=== PATIENT | male | born 1970 | race Caucasian/White ===

== ENCOUNTER 2017-06-12 11:45 | Observation (INO) ==
[2017-06-12] MEDS ORDERED: NITROGLYCERIN 2% OINT 1 INCH/GM PACK TOP STA ×2 (12:19→13:02)
[2017-06-12] MEDS ORDERED: ONDANSETRON 4 MG/2 ML VIAL IV STA (12:19)
[2017-06-12] MEDS ORDERED: MORPHINE 2 MG/1 ML SYRINGE IV STA (12:19)
[2017-06-12] MEDS ORDERED: ENOXAPARIN 100 MG/ML SYRINGE SUBCUT STA (12:19)
[2017-06-12] MEDS ORDERED: ASPIRIN 325 MG TABLET PO STA (12:19)
[2017-06-12] MEDS ORDERED: NITROGLYCERIN 2% OINT 1 INCH/GM PACK TOP ONE (12:51)
[2017-06-12] MEDS ORDERED: ONDANSETRON 4 MG/2 ML VIAL ONE (12:52)
[2017-06-12] MEDS ORDERED: ENOXAPARIN 80 MG/0.8 ML SYRINGE SUBCUT ONE (12:52)
[2017-06-12] MEDS ORDERED: ASPIRIN 325 MG TABLET ONE (12:53)
[2017-06-12] MEDS ORDERED: MORPHINE 10 MG/1 ML VIAL ONE (12:53)
[2017-06-12 12:58] LABS: Basophils # 0.1 10*3/uL (0.0-0.2); Basophils % 0.4 % (0.0-0.8); Eosinophils # 0.2 10*3/uL (0.0-0.87); Eosinophils % 1.5 % (0.00-10.9); Hematocrit 42.7 VOL% (42.0-52.0); Hemoglobin 15.2 GM/DL (14.0-18.0); Immature Granulocytes % 0.9 %; Immature Granulocytes Absolute 0.13 #; Lymphocytes # 2.3 10*3/uL (1.4-4.0); Mean Corpuscular HGB Conc 35.6 GM/DL (32-36); Mean Corpuscular Hemoglobin 33 PG (27-34); Mean Corpuscular Volume 93.8 FL (87-102); Mean Platelet Volume 9.4 FL (9.6-12.0); Monocytes % 6.9 % (1.7-12.7); Neutrophils # 10.1 10*3/uL (1.4-7.4); Neutrophils % 73.3 % (38.7-73.9); Platelet Count 293 T/CUMM (130-400); Red Blood Count 4.55 MC/CUMM (3.8-5.5); Red Cell Distribution Width 12.6 % (9.3-17.3); White Blood Count 13.7 T/CUMM (4-12)
[2017-06-12 13:06] LABS: PT Patient Result 10.3 SECS; Partial Thromboplastin Time 28.2 SECS (0-40)
[2017-06-12 13:23] LABS: Albumin 3.8 G/DL (3.4-5.0); Bilirubin,Total 0.9 MG/DL (0.2-1.0); Calcium 9.5 MG/DL (8.5-10.1); Osmolality,Calculated 278.5 MOS/KG (273-304); Total Protein 7.2 G/DL (6.4-8.3)
[2017-06-12] MEDS ORDERED: ONDANSETRON 4 MG/2 ML VIAL IV PRN (15:19)
[2017-06-12] MEDS ORDERED: DOCUSATE SODIUM 100 MG CAPSULE PO PRN (15:19)
[2017-06-12 15:46] LABS: Risk Ratio 2.32
[2017-06-12] MEDS ORDERED: MORPHINE 2 MG/1 ML SYRINGE IV PRN (15:51)
[2017-06-12] MEDS ORDERED: PNEUMOCOCCAL VACCINE (13 VALENT) 0.5 ML SYRINGE IM ONE (16:23)
[2017-06-12] MEDS: NICOTINE 21 MG/24 HR PATCH TRANSDERM SCH (17:32)
[2017-06-12] MEDS: MORPHINE 10 MG/1 ML VIAL IV PRN ×2 (17:32→21:52)
[2017-06-12] MEDS ORDERED: ENOXAPARIN 40 MG/0.4 ML SYRINGE SUBCUT SCH (18:00)
[2017-06-12] MEDS ORDERED: ZALEPLON 5 MG CAPSULE PO PRN (21:43)
[2017-06-13] MEDS: MORPHINE 10 MG/1 ML VIAL IV PRN ×2 (02:07→12:13)
[2017-06-13 05:55] LABS: Basophils # 0.1 10*3/uL (0.0-0.2); Basophils % 0.6 % (0.0-0.8); Eosinophils # 0.5 10*3/uL (0.0-0.87); Eosinophils % 4.5 % (0.00-10.9); Hematocrit 41.4 VOL% (42.0-52.0); Hemoglobin 13.8 GM/DL (14.0-18.0); Immature Granulocytes Absolute 0.11 #; Lymphocytes # 2.6 10*3/uL (1.4-4.0); Lymphocytes % 23.5 % (21.2-54.2); Mean Corpuscular HGB Conc 33.3 GM/DL (32-36); Mean Corpuscular Hemoglobin 32 PG (27-34); Mean Platelet Volume 9.6 FL (9.6-12.0); Monocytes # 0.9 10*3/uL (0.11-0.8); Monocytes % 8.2 % (1.7-12.7); Neutrophils % 62.2 % (38.7-73.9); Platelet Count 274 T/CUMM (130-400); Red Blood Count 4.27 MC/CUMM (3.8-5.5); Red Cell Distribution Width 12.7 % (9.3-17.3); White Blood Count 11.2 T/CUMM (4-12)
[2017-06-13 06:35] LABS: Calcium 9.2 MG/DL (8.5-10.1); Osmolality,Calculated 279.4 MOS/KG (273-304); Potassium 4.3 MMOL/L (3.5-5.1)
[2017-06-13] MEDS: NICOTINE 21 MG/24 HR PATCH TRANSDERM SCH (08:36)
[2017-06-13] MEDS ORDERED: PANTOPRAZOLE 40 MG TABLET PO SCH (09:00)
[2017-06-13 09:33] LABS: Troponin I Only < 0.015 NG/ML (0.00-0.045)
[2017-06-13 11:40] VITALS: BP 110/65
[2017-06-13] MEDS ORDERED: INFLUENZA VIRUS VACCINE (FLULAVAL) SYRINGE IM ONE (12:19)
[2017-06-13] MEDS ORDERED: INFLUENZA VIRUS VACCINE 0.5 ML SYRINGE IM ONE (12:30)
== END 2017-06-13 12:56 | disposition home or self-care (01) ==
LOC: N.ED 11:45 → N.EDINP 11:45 → SUATTDRO 14:09 → N.TELEN 15:55
PROVIDERS: ADMIT Internal Medicine; ATTEND Hospitalist

== ENCOUNTER 2018-11-26 12:23 | Inpatient (IN) ==
[2018-11-26 12:49] LABS: Basophils # 0.1 10*3/uL (0.0-0.2); Basophils % 0.7 % (0.0-0.8); Eosinophils # 0.1 10*3/uL (0.0-0.87); Eosinophils % 1.5 % (0.00-10.9); Hematocrit 41.7 VOL% (42.0-52.0); Hemoglobin 13.6 GM/DL (14.0-18.0); Immature Granulocytes % 0.5 %; Immature Granulocytes Absolute 0.05 #; Lymphocytes # 2.1 10*3/uL (1.4-4.0); Lymphocytes % 22.1 % (21.2-54.2); Mean Corpuscular HGB Conc 32.6 GM/DL (32-36); Mean Corpuscular Volume 96.8 FL (87-102); Neutrophils % 68.2 % (38.7-73.9); Platelet Count 294 T/CUMM (130-400); Red Blood Count 4.31 MC/CUMM (3.8-5.5); Red Cell Distribution Width 12.9 % (9.3-17.3); White Blood Count 9.6 T/CUMM (4-12)
[2018-11-26 13:12] LABS: Albumin 3.5 G/DL (3.4-5.0); Bilirubin,Total 0.9 MG/DL (0.2-1.0); Calcium 9.3 MG/DL (8.5-10.1); Osmolality,Calculated 283.1 MOS/KG (273-304); Total Protein 7.1 G/DL (6.4-8.3)
[2018-11-26 14:01] LABS: Free T4 (Free Thyroxine) 0.93 NG/DL (0.76-1.46); Thyroid Stimulating Hormone 1.86 uIU/ml (0.358-3.74)
[2018-11-26 14:42] LABS: Apearance,Urine CLEAR (Clear); Bilirubin,Urine Negative (Negative); Blood, Urine Negative (Negative); Glucose,Urine (UA) Negative (Negative); Ketones,Urine Negative (Negative); Mucus,Urine Many /LPF (Occasional); Nitrite,Urine Negative (Negative); Protein,Urine Negative; RBC,Urine <1 /HPF (0-4); Urine Color Yellow (Yellow); Urine Specific Gravity 1.019 (1.001-1.035); Urine Urobilinogen < 2.0 EU/DL (0.2-1.0); WBC,Urine <1 /HPF (0-6)
[2018-11-26] MEDS ORDERED: ONDANSETRON 4 MG/2 ML VIAL IV PRN (15:59)
[2018-11-26] MEDS ORDERED: ALBUTEROL/IPRATROPIUM 3 ML NEB RESP TX PRN (16:28)
[2018-11-26] MEDS ORDERED: NICOTINE 21 MG/24 HR PATCH TRANSDERM SCH (16:30)
[2018-11-26 18:51] LABS: Risk Ratio 2.8
[2018-11-26 19:29] LABS: Cancer Antigen 19-9 3.7 U/ML (0-37); Carcinoembryonic Antigen 0.6 NG/ML (0.0-5.0)
[2018-11-26 19:38] LABS: HIV Antigen/Antibody Result Nonreactive (Nonreactive)
[2018-11-26 19:41] LABS: Hepatitis B Surface Ag Quant < 0.10 Index; Hepatitis B Surface Ag Result Negative (Negative); Hepatitis C Virus Ab Quant 0.07 Index; Hepatitis C Virus Ab Result Negative (Negative)
[2018-11-26] MEDS: NICOTINE 21 MG/24 HR PATCH TRANSDERM SCH (20:30)
[2018-11-27 05:14] LABS: Basophils # 0.1 10*3/uL (0.0-0.2); Basophils % 0.7 % (0.0-0.8); Eosinophils # 0.5 10*3/uL (0.0-0.87); Eosinophils % 5.1 % (0.00-10.9); Hematocrit 38.9 VOL% (42.0-52.0); Hemoglobin 12.7 GM/DL (14.0-18.0); Immature Granulocytes % 0.6 %; Immature Granulocytes Absolute 0.06 #; Lymphocytes # 2.8 10*3/uL (1.4-4.0); Lymphocytes % 30.3 % (21.2-54.2); Mean Corpuscular HGB Conc 32.6 GM/DL (32-36); Mean Corpuscular Volume 97.5 FL (87-102); Mean Platelet Volume 9.2 FL (9.6-12.0); Monocytes % 7.1 % (1.7-12.7); Neutrophils % 56.2 % (38.7-73.9); Platelet Count 276 T/CUMM (130-400); Red Blood Count 3.99 MC/CUMM (3.8-5.5); Red Cell Distribution Width 12.7 % (9.3-17.3); White Blood Count 9.4 T/CUMM (4-12)
[2018-11-27 05:24] LABS: Calcium 9.1 MG/DL (8.5-10.1)
[2018-11-27] MEDS: NICOTINE 21 MG/24 HR PATCH TRANSDERM SCH (09:14)
[2018-11-27] MEDS: PANTOPRAZOLE 40 MG TABLET PO SCH (09:14)
[2018-11-27] MEDS: ASPIRIN CHEW 81 MG TABLET PO SCH (09:14)
[2018-11-27] MEDS ORDERED: POLYETHYLENE GLYCOL POWDER 255 GM BOTTLE PO ONE (10:50)
[2018-11-27] MEDS: SODIUM CHLORIDE 0.9% 1,000 ML IV SCH (13:50)
[2018-11-27] MEDS: DOCUSATE SODIUM 100 MG CAPSULE PO SCH ×2 (13:50→20:56)
[2018-11-27] MEDS: ATORVASTATIN 20 MG TABLET PO SCH (20:56)
[2018-11-27] MEDS ORDERED: POTASSIUM CHLORIDE 20 MEQ TABLET PO ONE (23:37)
[2018-11-28 03:57] LABS: Basophils # 0.1 10*3/uL (0.0-0.2); Basophils % 0.7 % (0.0-0.8); Eosinophils # 0.5 10*3/uL (0.0-0.87); Eosinophils % 4.8 % (0.00-10.9); Hematocrit 39.8 VOL% (42.0-52.0); Hemoglobin 12.9 GM/DL (14.0-18.0); Immature Granulocytes % 0.5 %; Immature Granulocytes Absolute 0.05 #; Lymphocytes # 3.6 10*3/uL (1.4-4.0); Lymphocytes % 36.5 % (21.2-54.2); Mean Corpuscular HGB Conc 32.4 GM/DL (32-36); Mean Corpuscular Volume 97.3 FL (87-102); Mean Platelet Volume 9.3 FL (9.6-12.0); Monocytes % 7.5 % (1.7-12.7); Platelet Count 266 T/CUMM (130-400); Red Blood Count 4.09 MC/CUMM (3.8-5.5); Red Cell Distribution Width 12.7 % (9.3-17.3); White Blood Count 9.9 T/CUMM (4-12)
[2018-11-28] MEDS: SODIUM CHLORIDE 0.9% 1,000 ML IV SCH ×2 (04:11→16:36)
[2018-11-28 04:28] LABS: Osmolality,Calculated 281.3 MOS/KG (273-304)
[2018-11-28] MEDS: ACETAMINOPHEN 325 MG TABLET PO PRN (05:53)
[2018-11-28] MEDS ORDERED: LACTULOSE 20 GM/30 ML UDCUP PO ONE (08:48)
[2018-11-28 08:57] LABS: Barbiturates Screen,Urine Negative (Negative); Benzodiazepines Screen,Urine Positive (Negative); Cannabinoid Screen,Urine Negative (Negative); Opiate Screen,Urine Negative (Negative); Phencyclidine Screen,Urine Negative (Negative)
[2018-11-28] MEDS: DOCUSATE SODIUM 100 MG CAPSULE PO SCH ×2 (09:25→20:50)
[2018-11-28] MEDS: NICOTINE 21 MG/24 HR PATCH TRANSDERM SCH (09:25)
[2018-11-28] MEDS: ASPIRIN CHEW 81 MG TABLET PO SCH (09:25)
[2018-11-28] MEDS: PANTOPRAZOLE 40 MG TABLET PO SCH (09:25)
[2018-11-28] MEDS ORDERED: LACTULOSE 20 GM/30 ML UDCUP PO PRN (10:08)
[2018-11-28] MEDS: ATORVASTATIN 20 MG TABLET PO SCH (20:50)
[2018-11-28] MEDS: TAMSULOSIN 0.4 MG CAPSULE PO SCH (20:50)
[2018-11-29] MEDS: SODIUM CHLORIDE 0.9% 1,000 ML IV SCH (05:09)
[2018-11-29] MEDS: ASPIRIN CHEW 81 MG TABLET PO SCH (08:47)
[2018-11-29] MEDS: TAMSULOSIN 0.4 MG CAPSULE PO SCH ×2 (08:47→20:43)
[2018-11-29] MEDS: DOCUSATE SODIUM 100 MG CAPSULE PO SCH ×2 (08:47→20:43)
[2018-11-29] MEDS: PANTOPRAZOLE 40 MG TABLET PO SCH (08:47)
[2018-11-29] MEDS: NICOTINE 21 MG/24 HR PATCH TRANSDERM SCH (08:48)
[2018-11-29] MEDS: ACETAMINOPHEN 325 MG TABLET PO PRN (08:52)
[2018-11-29] MEDS ORDERED: MAGNESIUM CITRATE 300 ML BOTTLE PO ONE (09:54)
[2018-11-29] MEDS ORDERED: POLYETHYLENE GLYCOL POWDER 255 GM BOTTLE PO ONE (11:13)
[2018-11-29] MEDS: ATORVASTATIN 20 MG TABLET PO SCH (20:43)
[2018-11-30] MEDS: SODIUM CHLORIDE 0.9% 1,000 ML IV SCH ×2 (02:41→21:12)
[2018-11-30 04:46] LABS: Basophils # 0.1 10*3/uL (0.0-0.2); Basophils % 0.6 % (0.0-0.8); Eosinophils # 0.4 10*3/uL (0.0-0.87); Eosinophils % 4.5 % (0.00-10.9); Hematocrit 37.5 VOL% (42.0-52.0); Hemoglobin 12.1 GM/DL (14.0-18.0); Immature Granulocytes % 0.6 %; Immature Granulocytes Absolute 0.05 #; Lymphocytes # 3.5 10*3/uL (1.4-4.0); Mean Corpuscular HGB Conc 32.3 GM/DL (32-36); Mean Corpuscular Volume 96.6 FL (87-102); Mean Platelet Volume 9.5 FL (9.6-12.0); Monocytes % 7.4 % (1.7-12.7); Neutrophils % 47.9 % (38.7-73.9); Platelet Count 264 T/CUMM (130-400); Red Blood Count 3.88 MC/CUMM (3.8-5.5); Red Cell Distribution Width 12.8 % (9.3-17.3); White Blood Count 8.9 T/CUMM (4-12)
[2018-11-30 05:06] LABS: Calcium 8.4 MG/DL (8.5-10.1)
[2018-11-30] MEDS ORDERED: LIDOCAINE 100 MG/5 ML SYRINGE ONE (07:30)
[2018-11-30] MEDS ORDERED: PROPOFOL 200 MG/20 ML VIAL IV ONE (07:30)
[2018-11-30] MEDS: LACTATED RINGERS 1,000 ML IV SCH (09:45)
[2018-11-30] MEDS ORDERED: BISACODYL 5 MG TABLET PO ONE (12:00)
[2018-11-30] MEDS: DOCUSATE SODIUM 100 MG CAPSULE PO SCH ×2 (13:21→21:09)
[2018-11-30] MEDS: TAMSULOSIN 0.4 MG CAPSULE PO SCH ×2 (13:21→21:09)
[2018-11-30] MEDS: PANTOPRAZOLE 40 MG TABLET PO SCH (13:21)
[2018-11-30] MEDS: NICOTINE 21 MG/24 HR PATCH TRANSDERM SCH (13:22)
[2018-11-30] MEDS: ASPIRIN CHEW 81 MG TABLET PO SCH (13:22)
[2018-11-30] MEDS ORDERED: POLYETHYLENE GLYCOL POWDER 255 GM BOTTLE PO ONE (18:00)
[2018-11-30] MEDS: ATORVASTATIN 20 MG TABLET PO SCH (21:09)
[2018-12-01 04:37] LABS: Basophils # 0.1 10*3/uL (0.0-0.2); Basophils % 0.6 % (0.0-0.8); Eosinophils # 0.5 10*3/uL (0.0-0.87); Eosinophils % 4.5 % (0.00-10.9); Hematocrit 39.7 VOL% (42.0-52.0); Hemoglobin 12.9 GM/DL (14.0-18.0); Immature Granulocytes % 0.7 %; Immature Granulocytes Absolute 0.08 #; Lymphocytes % 26.9 % (21.2-54.2); Mean Corpuscular HGB Conc 32.5 GM/DL (32-36); Mean Corpuscular Volume 97.1 FL (87-102); Mean Platelet Volume 9.2 FL (9.6-12.0); Monocytes % 7.1 % (1.7-12.7); Neutrophils % 60.2 % (38.7-73.9); Platelet Count 287 T/CUMM (130-400); Red Blood Count 4.09 MC/CUMM (3.8-5.5); Red Cell Distribution Width 12.7 % (9.3-17.3); White Blood Count 11.2 T/CUMM (4-12)
[2018-12-01 05:06] LABS: Osmolality,Calculated 282.1 MOS/KG (273-304)
[2018-12-01] MEDS: PANTOPRAZOLE 40 MG TABLET PO SCH (10:51)
[2018-12-01] MEDS: ASPIRIN CHEW 81 MG TABLET PO SCH (10:51)
[2018-12-01] MEDS: DOCUSATE SODIUM 100 MG CAPSULE PO SCH ×2 (10:51→20:39)
[2018-12-01] MEDS: TAMSULOSIN 0.4 MG CAPSULE PO SCH ×2 (10:52→20:39)
[2018-12-01] MEDS: SODIUM CHLORIDE 0.9% 1,000 ML IV SCH (10:56)
[2018-12-01] MEDS: NICOTINE 21 MG/24 HR PATCH TRANSDERM SCH (11:07)
[2018-12-01] MEDS: LACTATED RINGERS 1,000 ML IV SCH (11:08)
[2018-12-01] MEDS ORDERED: POLYETHYLENE GLYCOL POWDER 255 GM BOTTLE PO ONE (14:00)
[2018-12-01] MEDS: ATORVASTATIN 20 MG TABLET PO SCH (20:39)
[2018-12-02] MEDS: SODIUM CHLORIDE 0.9% 1,000 ML IV SCH (01:38)
[2018-12-02 05:18] LABS: PT Patient Result 11.1 SECS
[2018-12-02] MEDS ORDERED: LACTATED RINGERS 500 ML IV SCH (08:28)
[2018-12-02] MEDS: LACTATED RINGERS 1,000 ML IV SCH (08:55)
[2018-12-02] MEDS ORDERED: LIDOCAINE 2% 5 ML VIAL ONE (12:00)
[2018-12-02] MEDS ORDERED: PROPOFOL 200 MG/20 ML VIAL IV ONE (12:00)
[2018-12-02] MEDS ORDERED: PHENYLEPHRINE 1 MG/10 ML SYRINGE IV ONE (12:00)
[2018-12-02] MEDS: PANTOPRAZOLE 40 MG TABLET PO SCH (12:43)
[2018-12-02] MEDS: DOCUSATE SODIUM 100 MG CAPSULE PO SCH (12:43)
[2018-12-02] MEDS: TAMSULOSIN 0.4 MG CAPSULE PO SCH (12:43)
[2018-12-02] MEDS: ASPIRIN CHEW 81 MG TABLET PO SCH (12:43)
[2018-12-02] MEDS: NICOTINE 21 MG/24 HR PATCH TRANSDERM SCH (12:45)
[2018-12-02 14:05] VITALS: BP 97/65
== END 2018-12-02 15:41 | disposition home or self-care (01) | DRG 378 ==
LOC: N.ED 12:23 → N.EDINP 12:23 → N.4E 17:36
PROVIDERS: ADMIT Internal Medicine; ATTEND Internal Medicine